=== PATIENT | female | born 1960 | race Caucasian/White ===

== ENCOUNTER 2025-02-18 03:35 | Emergency (ER) | payer MEDICARE, OTHER, SELFPAY ==
[2025-02-18 03:38] VITALS: BP 128/86
--- NOTE | 2025-02-18 03:54 | ED.GENMED ---
History of Present Illness
General
Chief Complaint: Flank Pain
Source: patient
Exam Limitations: none
Time Seen by Provider: 02/18/25 03:42
History of Present Illness
History of Present Illness:
See MDM
Past History
Past History
ED Past Medical History: None
ED Past Surgical History: None
Social History
Tobacco: Non-smoker
Alcohol: None
Phy Exam
Physical Exam
Physical Exam:
See MDM
Course
Orders/Labs/Results
Orders:
Orders
02/18/25 03:53
Electrocardiogram (*1) Urgent
Reason for Study: Abdominal Pain
CT Abd/pel Without Iv Or Oral Urgent
Comment:
Reason For Exam: left flank pain
EKG- Treatment ONCE
Mag Hydrox/Al Hydrox/Simeth [Maalox] 30 ml Phenobarb/Hyoscy/Atropine/Scop [] 10 ml Viscous Lidocaine 2% [Xylocaine Viscous Cup] 10 ml PO NOW
Ondansetron Injectable [Zofran] 4 mg IV NOW STA
02/18/25 03:55
Mag Hydrox/Al Hydrox/Simeth [Maalox] 30 ml .ROUTE .STK-MED ONE
Phenobarb/Hyoscy/Atropine/Scop [] 10 ml .ROUTE .STK-MED ONE
Viscous Lidocaine 2% [Xylocaine Viscous Cup] 15 ml .ROUTE .STK-MED ONE
02/18/25 03:59
Complete Blood Count/With Diff Urgent
Comprehensive Metabolic Panel Urgent
Lipase Urgent
Troponin I Urgent
Urinalysis Reflex To Culture Urgent
Date Specimen was Collected: 02/18/25
Time Specimen was Collected: 03:57
Urine Microscopic Reflex Cult Urgent
02/18/25 05:34
Ketorolac [Toradol] 30 mg IV NOW STA
02/18/25 06:14
Tramadol HCl [Ultram] 25 mg PO ONCE ONE
Abnormal Lab Results
02/18/25
03:59
MCHC 32.6 L g/dL
(33.0-37.0)
Chloride 108 H mmol/L
(98-107)
Urine Albumin (Reflex) 1+ A
(Neg - Trace)
02/18/25 03:59
02/18/25 03:59
Vital Signs
Initial and Last Documented VS:
Initial Vital Signs
Temp Pulse Resp BP Pulse Ox
98.2 F 80 20 128/86 100
02/18/25 03:38 02/18/25 03:38 02/18/25 03:38 02/18/25 03:38 02/18/25 03:38
Last Documented Vital Signs
Temp Pulse Resp BP Pulse Ox
98.2 F 70 18 111/73 100
02/18/25 03:38 02/18/25 05:30 02/18/25 06:04 02/18/25 05:21 02/18/25 03:55
MDM/Problems Addressed
Differential Diagnosis Includes:
Note:
CHIEF COMPLAINT(S)
Back pain and abdominal pain.
HISTORY OF PRESENT ILLNESS
The patient is a 64-year-old female presenting with significant back pain and abdominal pain. Approximately six weeks ago, she began experiencing back discomfort and has been taking uxzu-plf-uhfyfna pain medications, specifically Ibuprofen and
Aleve, regularly since then. Two weeks ago, she had an acute episode of severe pain which prompted a visit to an urgent care facility. She was reassured that the pain was not cardiac in origin. There was a suggestion from the provider at that time
that excessive use of analgesics could be contributing to her symptoms. Although the intensity of the pain subsided, it has persisted to some degree. In an attempt to seek further evaluation, she planned to visit a groutman.
The patient reports a new onset of left-sided back pain starting this morning, which intensified progressively, preventing her from sleeping. The pain is constant and does not fluctuate. She denies any urinary symptoms such as burning or frequency.
She has no history of diverticulosis or diverticulitis. She did report a past surgical procedure for an appendectomy. There was a conversation with the provider about the possibility of a kidney stone or a gastric issue such as an ulcer. The patient
also reported experiencing nausea without any episodes of vomiting or blood.
PHYSICAL EXAM
General: Alert, no acute distress.
Skin: Warm, dry.
Head: Normocephalic, atraumatic
Neck: Appears supple, trachea midline.
Eyes, Ears, Nose, Mouth, and Throat: Moist mucous membranes
Cardiovascular: No signs of cyanosis
Respiratory: Respirations are non-labored.
Abdomen: Non-distended. Mild left upper quadrant and left flank pain. No rebound
Musculoskeletal: No deformities
Neurological: No focal neurological deficit observed.
Psychiatric: Cooperative, appropriate mood and affect.
PLAN
1. Administer a gastrointestinal cocktail to evaluate any relief of gastric-related discomfort.
2. Conduct blood tests for further evaluation.
3. Perform a computed tomography (CT) scan to rule out kidney stones or other potential causes of pain.
4. Order a urinalysis to assess renal function and check for other abnormalities.
5. Monitor the patients response to the GI cocktail and re-evaluate based on findings from diagnostic tests.
DIFFERENTIAL DIAGNOSIS
The Differential Diagnosis includes, in no particular order and is not limited to:
1. Renal colic (kidney stones)
2. Gastric ulcer
3. Musculoskeletal back pain
4. Pyelonephritis
5. Gastroesophageal reflux disease (GERD)
6. Pancreatitis
7. Cholecystitis
8. Spinal stenosis
9. Abdominal aortic aneurysm
10. Rib fracture
02/18/25 - 05:39
Blood work shows no significant abnormalities, and the CT of the abdomen and pelvis is essentially negative. Upon reassessment, her abdominal pain has improved following the GI cocktail. The patient continues to experience mild left flank pain; will
administer a dose of Toradol.
SUMMARY OF ENCOUNTER
The patient, a 64-year-old female, presented with back and abdominal pain. Initial workup revealed no significant abnormalities. The patient began to suspect the pain was musculoskeletal in nature, possibly due to recent physical activity such as
spackling. The decision was made to administer a dose of ketorolac for pain relief and to discuss the use of muscle relaxants which she has tolerated in the past. The potential risk of constipation from narcotics was addressed, and the patient
expressed concern about possible gastric ulcer, leading to the initiation of sucralfate. Discussion also included the importance of follow-up with gastroenterology.
PLAN
Administer a dose of ketorolac to alleviate pain. Start sucralfate for concern of gastric ulcer. Discuss muscle relaxants as a potential management strategy given past tolerance. Advise the patient on return precautions and emphasize follow-up with
a groutman.
PATIENT EDUCATION AND COUNSELING
The patient was informed about the potential side effects and risks associated with narcotics, including the risk of constipation. Discussed the importance of monitoring for any worsening symptoms, and advised follow-up with a groutman to
address ongoing gastric concerns.
FOLLOW-UP INSTRUCTIONS
The patient is advised to follow up with a groutman and to monitor for any increasing or returning symptoms, seeking care as needed.
MEDICATION RECONCILIATION
Administer a dose of Toradol (ketorolac).
Start sucralfate for gastric ulcer concerns.
MEDICAL DECISION MAKING
- Number and Complexity of Problems Addressed: Chronic conditions affecting care: Musculoskeletal pain; potential gastric ulcer. Differential Diagnosis includes renal colic, gastric ulcer, musculoskeletal back pain, gastroesophageal reflux disease
(GERD), pancreatitis, etc.
- Data:
Category 1: Tests and documents were initially ordered and reviewed, showing unremarkable findings.
Category 3: Discussion of management plan with the patient involved addressing potential muscle relaxants and sucralfate.
- Risk:
Prescription medication was prescribed and discussed, with particular caution advised with narcotics.
DIAGNOSIS
- Musculoskeletal pain (ICD-10: M79.1)
- Suspected gastric ulcer (ICD-10: K25.9)
*Pulse Oximetry
SaO2: 100
Patient hypoxic: no
*Critical Care Note
Total Time (30-74mins, 75-104mins- exclusive of procedures): Not Applicable
ED Attending Note
-
Portions of this chart may have been created with voice recognition software.� Occasional wrong word or��sound alike� substitutions may have occurred due to the inherent limitations of voice recognition software.
Discharge Plan
Departure
Patient Disposition: Home (Routine Discharge)
Date of Disposition: 02/18/25
Time of Disposition: 06:14
Patient with high blood pressure during this ER visit?: No
Discharge Problem:
Left flank pain
Instructions: Flank Pain (DC)
Prescriptions:
New
cyclobenzaprine 10 mg Tablet
10 mg PO BIDPRN PRN (Reason: muscle spasm) Qty: 14 0RF
tramadol 25 mg tablet
25 mg PO BID PRN (Reason: Pain) Qty: 14 0RF
sucralfate [Carafate] 1 gram tablet
1 g PO BID 28 Days Qty: 56 0RF
Referrals:
Anibal Zamora MD [Family Provider, Internal Medicine]
Activity Restrictions/Additional Instructions:
Please return for any worsening symptoms.
You may return at any time if you have further concerns.
Please follow up with your doctor at the first available appointment, preferably this week.
You were given a prescription for narcotics. If you require this pain medicine, please take a daily soim-wbf-pnnjbpl stool softener to avoid constipation.
Thank you for choosing [facility].
Interventions
Interventions:
*Risk Screen - Suicide Last Done: 02/18/25 03:38
*General Assessment Last Done: 02/18/25 04:08
*Neglect/Abuse Screening Last Done: 02/18/25 03:38
*ED- Fall Risk Assessment Last Done: 02/18/25 04:08
*ED COVID-19 Vaccine History Last Done: 02/18/25 04:08
*ED Influenza Vaccine History Last Done: 02/18/25 04:08
PQ-Hxcpbs-Flncjebzur Assessment Last Done: 02/18/25 04:17
ED-Female Genitourinary Assessment Last Done: 02/18/25 04:17
Discharge Date and Time
Print Language: ARMENIAN
[2025-02-18 04:01] VITALS: BMI 23.4
[2025-02-18] MEDS: ZOFRAN 4 MG IV (04:02)
[2025-02-18] MEDS: MAALOX 50 PO (04:04)
[2025-02-18 04:07] LABS: Hematocrit 39.6 % (37.0-47.0); Hemoglobin 12.9 g/dL (12.0-16.0); Mean Corp Hgb Conc. 32.6 g/dL (33.0-37.0); Mean Corpuscular Volume 88.6 fL (81.0-99.0); Nucleated Red Blood Cells % 0 %; Platelet Count 161 10^3/uL (130-400); Red Cell Dist. Width 14.5 % (11.5-14.5); Urine Character Clear (Clear)
[2025-02-18 04:32] LABS: ALT (SGPT) 33 U/L (0-35); AST (SGOT) 30 U/L (14-36); Albumin 4.0 g/dl (3.5-5.0); Alkaline Phosphatase 54 U/L (38-126); Blood Urea Nitrogen 14 mg/dl (7-17); Calcium 9.0 mg/dl (8.4-10.2); Carbon Dioxide 28 mmol/L (22-30); Chloride 108 mmol/L (98-107); Estimated Creatinine Clearance 63 ml/min; Glucose 97 mg/dl (70-99); Lipase 121 U/L (23-300); Potassium 3.8 mmol/L (3.5-5.1); Sodium 140 mmol/L (135-145); Total Protein 6.6 g/dl (6.3-8.2); eGFR > 60.00
[2025-02-18 04:43] LABS: Troponin I < 0.012 ng/ml
[2025-02-18 05:21] VITALS: BP 111/73
[2025-02-18] MEDS: TORADOL 30 MG IV (05:38)
[2025-02-18 06:20] LABS: Urine Squamous Cell >30 /LPF (Few)
[2025-02-18] MEDS: ULTRAM 25 MG PO (06:44)
[2025-02-18 06:47] VITALS: BP 115/73
[2025-02-18 06:48] VITALS: BP 115/73
== END 2025-02-18 06:55 | disposition home or self-care (01) ==
LOC: EMR 03:35
PROVIDERS: EMERGENCY PHYSICIAN Student in an Organized Health Care Education/Training Program; FAMILY PHYSICIAN Internal Medicine
DX: R10.9 Unspecified abdominal pain (principal)
CPT/HCPCS: 99284; 96374; 96375; 74176; 80053; 81003; 81015; 83690; 84484; 85025; 93005